=== PATIENT | male | born 1970 | race Caucasian/White ===

== ENCOUNTER 2022-06-24 17:15 | Emergency (ER) | payer OTHER ==
[~2022-06-24] VITALS: Ht 188 cm; Wt 122.5 kg
[2022-06-24 17:21] VITALS: BP_SYST 123
[2022-06-24 18:05] LABS: BASOPHILS % (AUTO) 0.5 % (0.0-2.0); EOSINOPHILS # (AUTO) 0.3 K/uL (0.0-0.4); EOSINOPHILS % (AUTO) 3.8 % (0.0-4.0); HEMATOCRIT 43.6 % (36-54); HEMOGLOBIN 14.7 g/dL (14.0-18.0); LYMPHOCYTES % (AUTO) 29.4 % (20.5-51.5); MEAN CORPUSCULAR HEMOGLOBIN 31 pg (27-31); MEAN CORPUSCULAR HGB CONC 34 % (32-36); MEAN CORPUSCULAR VOLUME 91 fL (79.0-98.0); MONOCYTES # (AUTO) 0.4 K/uL (0.0-1.0); MONOCYTES % (AUTO) 5.8 % (1.7-9.3); NEUTROPHILS # (AUTO) 4.1 K/uL (1.8-7.7); NEUTROPHILS % (AUTO) 60.5 % (40.0-70.0); PLATELET COUNT (AUTO) 238 K/uL (130-430); RED BLOOD CELL COUNT(AUTO) 4.77 MIL/uL (4.2-6.2); RED CELL DISTRIBUTION WIDTH 13.5 % (9.0-15.0); WHITE BLOOD COUNT (AUTO) 6.9 K/uL (4.8-10.8)
[2022-06-24 18:20] LABS: PROTHROMBIN TIME 9.9 SECS (9.5-12.5)
[2022-06-24 18:28] LABS: ALANINE AMINOTRANSFERASE 49 U/L (12-78); ALBUMIN 3.6 g/dL (3.4-4.8); ANION GAP 6 (5-15); ASPARTATE AMINOTRANSFERASE 37 U/L (10-37); CALCIUM 9.3 mg/dL (8.4-11.0); CHLORIDE 100 mmol/L (98-107); CREATININE 0.87 mg/dL (0.55-1.30); GFR AFRICAN AMERICAN 118 mL/min (>90); GLUCOSE 107 mg/dL (70-99); TOTAL BILIRUBIN 0.3 mg/dL (0.0-1.0); UREA NITROGEN, BLOOD 18 mg/dL (8-21)
--- NOTE | 2022-06-24 18:54 | NUR ---
Patient to ER bed 01 to gown for evaluation.
--- NOTE | 2022-06-24 18:55 | NUR ---
PATIENT BROUGHT IN BY SON FOR SYNCOPAL EPISODE X 2. 3 INCH LACERATION IN RIGHT EYEBROW. AOX 4 AMBULATORY.
--- NOTE | 2022-06-24 19:17 | NUR ---
assumed patient care pt aox4 gcs 15 c/o right eyebrow lac, per pt he had been drinking through out the day waiting for his son to pick him up. patient states as he was walking to his sons truck when he he fell face foward striking the right side of his face. pt does not recall the insident states he does not remember falling. + loc neg bld thinner.
[2022-06-24] MEDS ORDERED: LIDOCAINE 1% 10 MG/ML, 20 ML MDV INJ ONE (20:00)
[2022-06-24] MEDS ORDERED: BACITRACIN 1 GM OINT TP ONE (20:15)
[2022-06-24] MEDS ORDERED: DIPHTH,PERTUSS(ACELL),TET VAC 0.5 ML VIAL (Tdap) I.M. ONE (20:15)
[2022-06-24] MEDS ORDERED: BACI15OI13 TP (20:29)
[2022-06-24 20:51] VITALS: BP_SYST 126
--- NOTE | 2022-06-24 20:51 | NUR ---
Patient given written and verbal discharge instructions and verbalizes understanding. ER MD discussed with patient the results and treatment provided. Patient in stable condition. ID arm band removed. Rx of bacitracin given. Patient educated on pain management and to follow up with PMD. Pain Scale 0/10 Opportunity for questions provided and answered. Medication side effect fact sheet provided.
== END 2022-06-24 20:51 | disposition home or self-care (01) ==
LOC: SED 17:15
DX: S01.111A Laceration without foreign body of right eyelid and periocular area, initial encounter (principal); R55 Syncope and collapse; Z79.899 Other long term (current) drug therapy; W22.09XA Striking against other stationary object, initial encounter; Y93.89 Activity, other specified; Y92.89 Other specified places as the place of occurrence of the external cause; Y99.8 Other external cause status
CPT/HCPCS: 99285; 70450; 71045; 80053; 83880; 85025; 85610; 85730; 84484; 36415; 76376; 90715; 90471; 12011; 93005; J2001